=== PATIENT | male | born 1960 | race Caucasian/White ===

== ENCOUNTER 2016-09-26 10:30 | Emergency (ER) | payer OTHER ==
[~2016-09-26] VITALS: Ht 180.3 cm; Wt 81.8 kg
[2016-09-26 10:31] VITALS: BP 164/91; PULSE 69; RESP 14; TEMP 98.2; O2SAT 97
[2016-09-26] MEDS ORDERED: IBUP800T23 PO (11:08)
[2016-09-26] MEDS ORDERED: CLIN1CAP6 PO (11:08)
[2016-09-26] MEDS ORDERED: PERI0.126 SWISH-SPIT (11:08)
--- NOTE | 2016-09-26 11:08 | PD ---
HPI Chief Complaint: Oral / Dental Pain or Problem Time Seen by Provider: 11:04 Travel History International Travel<30 days: No Contact w/Intl Traveler<30days: No Traveled to known affect area: No History of Present Illness HPI 56-year-old male presents to the emergency department for evaluation of dental abscess that started 2 days ago. Patient has been taking ibuprofen for pain. He states he woke up this morning with left facial swelling. He states the swelling has gone down with ice. He denies any fevers. Patient has no chronic medical problems and takes no prescribed medications. FOR[facility]LY [facility], [facility] Social History Alcohol Use: No Tobacco Use: Yes Substance Use: No Allergies-Medications (Allergen,Severity, Reaction): Coded Allergies: No Known Allergies (Unverified , 09/26/16) Review of Systems Except as stated in HPI: all other systems reviewed are Neg Physical Exam Narrative GENERAL: Well-developed well-nourished male patient, ambulatory. Afebrile. SKIN: Warm and dry. HEAD: Normocephalic. Atraumatic. No facial swelling noted. ENT: Mucosa pink and moist. No erythema or exudates. No uvular edema. No uvular , palatal, or tonsillar deviation. Airway patent. Nasal turbinates appear normal without nasal blood, purulent drainage or septal hematoma. Bilateral tympanic membranes are clear without erythema or perforation. Patient has fluctuant dental abscess above tooth #10. Patient has poor dentition. EYES: No scleral icterus. No injection or drainage. NECK: Supple, trachea midline. No JVD or lymphadenopathy. CARDIOVASCULAR: Regular rate and rhythm without murmurs, gallops, or rubs. RESPIRATORY: Breath sounds equal bilaterally. No accessory muscle use. Lungs sounds clear to auscultation. Data Data Last Documented VS Vital Signs Date Time Temp Pulse Resp B/P Pulse Ox O2 Delivery O2 Flow Rate FiO2 09/26/16 10:31 98.2 69 14 164/91 97 Orders Clindamycin (Cleocin) (09/26/16 11:15) [facility] Medical Decision Making Medical Screen Exam Complete: Yes Emergency Medical Condition: Yes Medical Record Reviewed: Yes Differential Diagnosis Dental abscess versus dental caries versus gingivitis Narrative Course 56-year-old male presents to the emergency department for evaluation of dental abscess that started 2 days ago. Physical exam reveals dental abscess that is fluctuant above tooth #10. Patient gives verbal consent for incision and drainage. Wound culture is taken. Patient is given first dose of clindamycin the emergency department. He'll be discharged prescription for clindamycin and Peridex oral solution. He is instructed to follow-up with a dentist. Patient is agreeable. Procedures Procedure Narrative INCISION AND DRAINAGE OF ABSCESS: The area was prepped and was sterilely draped. Topical Hurricaine spray was used to anesthetize the area. The area was properly anesthetized. A number 11 scalpel was used to make a 0.5 -cm incision across the area of the abscess. Cultures were obtained. The abscess was drained an irrigated with normal saline. Sterile dressing applied. Diagnosis Primary Impression: Dental abscess Referrals: Dentist call for appointment Patient Instructions: Dental Abscess (ED), General Instructions Additional Instructions: Take clindamycin as directed until gone. Take ibuprofen as instructed as needed with food for pain. Use Peridex oral solution as directed. Follow-up with a dentist. Return to the emergency department for any acute worsening of symptoms. Med/Other Pt SpecificInfo: Prescription(s) given Scripts Chlorhexidine Gluconate (Mouth) Liq (Peridex Liq)0.12% Soln15 Ml SWISH-SPIT BID #473 ML Ref 0 Prov:Love Jones 09/26/16 Ibuprofen 800 Mg [id number] Mg PO TID PRN (PAIN SCALE 1 TO 10) #21 TAB Ref 0 Prov:Love Jones 09/26/16 Clindamycin 300 Mg [id number] Mg PO Q6H 10 Days Ref 0 Prov:Love Jones 09/26/16 Disposition: 01 DISCHARGE HOME Condition: Stable Love Jones Sep 26, 2016 11:08
[2016-09-26] MEDS ORDERED: CLINDAMYCIN 150 MG CAP PO ONE (11:15)
== END 2016-09-26 11:21 | disposition home or self-care (01) ==
LOC: NEPB 10:30
DX: K04.7 Periapical abscess without sinus (principal); Z72.0 Tobacco use
CPT/HCPCS: 41800; 86403; 87070; 87185

== ENCOUNTER 2017-09-28 11:53 | Emergency (ER) | payer SELFPAY, OTHER ==
[2017-09-28] MEDS: CYCLOBENZAPRINE HCL 10 MG TAB PO (14:00)
[2017-09-28] MEDS: DEXAMETHASONE SOD PHOS 20 MG/5 ML VIAL IM (14:18)
== END 2017-09-28 14:22 | disposition home or self-care (01) ==
LOC: NEPK 11:53
DX: M25.511 Pain in right shoulder (principal); R91.1 Solitary pulmonary nodule; Z72.0 Tobacco use
CPT/HCPCS: 73030; 96372; 99284-25

== ENCOUNTER 2017-10-14 12:18 | Emergency (ER) | payer SELFPAY ==
[~2017-10-14] VITALS: Ht 180.3 cm; Wt 86.0 kg
[~2017-10-14 12:18] MED LIST: CLIN300C5 PO; CYCL10TA PO; IBUP1TAB7 PO; MEDR4PAK PO; PERI0.126 SWISH-SPIT
[2017-10-14 12:19] VITALS: BP 166/87; PULSE 79; RESP 16; TEMP 98.4; O2SAT 100
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
[2017-10-14] MEDS ORDERED: DICL75TA PO (14:31)
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
== END 2017-10-14 14:53 | disposition home or self-care (01) ==
LOC: NEPK 12:18
DX: S93.401A Sprain of unspecified ligament of right ankle, initial encounter (principal); W31.89XA Contact with other specified machinery, initial encounter
CPT/HCPCS: 73564; 73610; 73630; 99283